=== PATIENT | female | born 1990 | race Caucasian/White ===

== ENCOUNTER 2025-04-17 15:06 | Outpatient (CLI) | payer BC, SELFPAY ==
--- NOTE | ~2025-04-17 | MR_ITS ---
EXAMINATION: MR brain/brain stem wo/w con DATE: 04/17/2025 15:59 INDICATION: Unspecified convulsions TECHNIQUE: Magnetic resonance imaging (MRI) of the brain and brainstem was performed without and with 14 mL Multihance intravenous contrast. Sequences included sagittal and axial T1-weighted SE, axial d iffusion-weighted FS SE, axial 3D SWAN, axial T2-weighted FLAIR Propeller, axial T2-weighted Propelle r, coronal T2-weighted FLAIR, and coronal T1-weighted 3D FSPGR. Postcontrast axial T1-weighted SE was obtained. Apparent diffusion coefficient (ADC) maps were created. COMPARISON: None. FINDINGS: There are no areas of restricted diffusion to suggest acute infarction. No intracranial hemorrhage or abnormal intracranial mass lesion. There are scattered areas of nonspecific increased T2-weighted si gnal intensity in the cerebral white matter, predominantly involving the deep and periventricular whi te matter. There are no intraparenchymal signal abnormalities seen on the other pulse sequences. The ventricles are symmetric and normal in size. Bilateral hippocampi appear normal and symmetric. No meagan dent cruz matter heterotopias or other neuronal migrational abnormalities. There are no abnormal extr a-axial fluid collections. Flow voids are seen in the cerebral arteries on the T2-weighted sequences consistent with their expected patency. Visualized orbits and soft tissues are unremarkable. Mild muc osal thickening the bilateral ethmoid sinuses. Small left mastoid effusion. There are no areas of abn ormal enhancement on the post contrast images. IMPRESSION: 1. Normal brain. No acute intracranial process, abnormal enhancing lesions or other etiology for repo rted convulsions. Reviewed, dictated and finalized at location A. IMPRESSION: 1. Normal brain. No acute intracranial process, abnormal enhancing lesions or o ther etiology for reported convulsions.
--- OUTSIDE RECORDS SUMMARY | 2025-04-17 16:08 | XMS_ITS | Referral Summary ---
Author Organization [facility] [address] Address [address] [place] [address] Phone Care Team Providers Care Line Out Man Name Role Phone Too Wise MD Primary Care Provider + Encounters Date Type Department Care Team Description 04/14/2025 5:32 AM CDT Hospital Encounter [facility] 04/14/2025 5:50 AM CDT - 04/14/2025 10:51 AM CDT Emergency [facility] Emergency Department [address] [place], [place] [id number] Hilda Corona MD Seizure (HCC) (Primary Dx) Discharge Disposition: Discharge to home or self care 03/31/2025 Telephone [facility] [address] [place] [address] Krysten Sanchez MD from Last 3 Months Allergies Active Allergy Reactions Criticality Noted Date Comments Venom-Honey Bee Rash Medium 01/10/2020 Gluten Diarrhea Low 01/10/2020 Shellfish Containing Products Unknown 2024 Medications levETIRAcetam (KEPPRA) 1,000 mg tablet Take 1 tablet (1,000 mg total) by mouth 2 (two) times a day 120 tablet 04/14/2025 Active Active Problems Problem Noted Date Diagnosed Date Elevated BP without diagnosis of hypertension Overview (10/30/2021): Elevated office readings in . Preeclamptic labs WNL 10/13/19. 24' urine - 118 mg protein 10/16/19. Home BP monitoring all WNL. Seasonal allergies 12/02/2018 Resolved Problems Problem Noted Date Diagnosed Date Resolved Date Poor growth affecting management of mother in third trimester 09/17/2021 10/30/2021 Maternal varicella, non-immune 04/11/2021 10/30/2021 Antepartum anemia 10/07/2019 02/17/2020 Maternal varicella, non-immune 06/27/2019 02/17/2020 Immunizations Immunization Administration Dates Next Due Influenza, Quadrivalent, Spl it, Preservative Free, Intramuscular 08/19/2021,10/13/2019 Tdap 07/05/2021,10/13/2019 Social History Tobacco Use Types Packs/Day Years Used Date Smoking Tobacco: Never Smokeless Tobacco: Never Tobacco Cessation:Counseling Given: Not Answered Alcohol Use Standard Drinks/Week Comments Not Currently 0 (1 standard drink = 0.6 oz pur e alcohol) 3-5 TIMES A WEEK AUDIT-C Answer Date Recorded Q1: How often do you have a drink containing alc ohol? Never 09/18/2021 Average Number of Drinks Not on file 021 Frequency of Binge Drinking Not on file 09/09 Personal Safety Answer Date Recorded Have you ever been in or are you currently in a harmful physical or emotional relationship or is someone making you feel afraid or unsafe? Denies 04/14/2025 Comments No Sex and Gender Information Value Date Recorded Sex Assigned at Not on file Legal Sex Female 11:41 AM FINISHER HOT STRIP Gender Identity Not on file Sexual Orientation Not on file Last Filed Vital Signs Vital Sign Reading Time Taken Comments Blood Pressure 110/79 04/14/2025 10:30 AM CDT Pulse 57 04/14/2025 10:30 AM CDT Temperature 36.5 C (97.7 F) 04/14/2025 5:54 AM CDT Respiratory Rate 19 04/14/2025 10:30 AM CDT Oxygen Saturation 99% 04/14/2025 10:30 AM CDT Inhaled Oxygen Concentration - - Weight 61.2 kg (135 lb) 04/14/2025 5:54 AM CDT Height 160 cm (5' 3) 11/17/2024 9:34 AM FINISHER HOT STRIP Body Mass Index 23.91 11/17/2024 9:34 AM FINISHER HOT STRIP Plan of Treatment Not on file Procedures Procedure Name Priority Date/Time Associated Diagnosis Comments POCT HCG, URINE Routine 04/14/2025 8:07 AM CDT URINALYSIS AND REFLEX TO MICROSCOPIC AND CULTURE STAT 04/14/2025 8:[address] HEAD WO CONTRAST ED 04/14/2025 7 :49 AM CDT SEPSIS LACTATE WITH REFLEX STAT 04/14/2025 6:47 AM CDT ECG 12-LEAD Routine 04/14/2025 6:00 AM CDT HCG, BLOOD, QUANTITATIVE STAT 04/14/2025 6:00 AM CDT EGFR STAT 04/14/2025 5:53 AM CDT DIFFERENTIAL AUTO STAT 04/14/2025 5:5 3 AM CDT COMPREHENSIVE METABOLIC PANEL STAT 04/14/2025 5:53 AM CDT CBC WITH AUTO DIFFERENTIAL STAT 04/14/2025 5:53 AM CDT PAP AND HIGH RISK HPV, REFLEX TO GENOTYPING Routine 11/12/2023 9:28 AM FINISHER HOT STRIP Screening for malignant neoplasm of the cervix HEPATITIS C ANTIBODY Routine 03/14/2021 3:29 PM CDT 8 weeks gestation of care, subsequent , second trimester from Last 3 Months or Most Recently Relevant to Health Maintenance Results * POCT hCG, urine (04/14/2025 8:07 AM CDT) HCG, ur, POC Negative Negative Lot Number [id number] QC Backgroud Clear Acceptable QC Control Line Acceptable Urine 04/14/2025 8:07 AM CDT Hilda Corona MD POINT OF CARE TEST ORDERA BLES Final Result * Urinalysis reflex to microscopic and culture Urine (04/14/2025 8:01 AM CDT) Color, ur Straw Yellow Clarity, ur Clear Clear [facility] ([place]) Specific gravity, ur 1.009 1.003 - 1.030 [facility]) pH, urine 6.0 [facility]) Comment: Interpretive Data U rine pH is affected by diet, medications, systemic acid-base disturbances, and renal tubular function. pH may affect urinary stone formation. For example, urine pH below 6.0 may help reduce the tendency for calcium phosphate stones and pH greater than 6.0 may reduce the tendency for uric acid stone formation. Source: [facility] Current Interpretive Data was last revised on 2017 Protein, ur ql Negative Negative [facility] ([place]) Glucose, ur ql Negative Negative [facility] ([place]) Ketones, ur Negative Negative [facility] ([place]) Bilirubin, ur Negative Negative [facility]) Blood, ur Negative Negative [facility]) Urobilinogen, ur <2.0 <2.0 mg/dL [facility]) Nitrite, ur Negative Negative [facility] ([place]) Leukocyte esterase, ur Negative Negative [facility]) UA reflex comment Reflex conditions for microscopic UA and culture not met. [facility]) Urine 04/14/2025 8:01 AM CDT 04/14/2025 8:07 AM CDT Hilda Corona MD LAB MICROBIOLOGY - GENERA L ORDERABLES Final Result [facility] SANIYA ([place]) 1 [facility] Department of Laboratories [place], [place] [id number] * CT Head WO Contrast (04/14/2025 7:49 AM CDT) Anatomical Region Laterality Modality Head and Neck N/A Computed Tomogra phy 04/14/2025 7:58 AM CDT Narrative 04/14/2025 8:01 AM CDT EXAM DESCRIPTION: CT HEAD WO CONTRAST REASON FOR STUDY: Seizure, new-onset, no history of trauma Seizures TECHNIQUE: Axial images acquired through the brain without intravenous contrast. Images stored on PACS. Automated exposure control was used as a dose optimization technique for this examination. COMPARISON: None FINDINGS: BRAIN: No hemorrhage, edema or mass effect. No recent infarct. Normal white matter. EXTRA-AXIAL SPACES: No fluid collections. No masses. CALVARIUM: No fracture. SINUSES/MASTOIDS: No fluid or mucosal thickening. ORBITS: No significant abnormality. OTHER: No other significant abnormality. IMPRESSION: No acute intracranial findings. THIS IS AN ELECTRONICALLY VERIFIED FINAL REPORT 04/14/2025 8:01 AM - Electronically signed by Connor Cook M.D. AM: AM Report ID: [id number] Reading Location: [id number] Procedure Note Connor Cook MD - 04/14/2025 EXAM DESCRIPTION: CT HEAD WO CONTRAST REASON FOR STUDY: Seizure, new-onset, no history of trauma Seizures TECHNIQUE: Axial images acquired through the brain without intravenous contrast. Images stored on PACS. Automated exposure control was used asa dose optimization technique for this examination. COMPARISON: None FINDINGS: BRAIN: No hemorrhage, edema or mass effect. No recent infarct. Normal white matter. EXTRA-AXIAL SPACES: No fluid collections. No masses. CALVARIUM: No fracture. SINUSES/MASTOIDS: No fluid or mucosal thickening. ORBITS: No significant abnormality. OTHER: No other significant abnormality. IMPRESSION: No acute intracranial findings. THIS IS AN ELECTRONICALLY VERIFIED FINAL REPORT 04/14/2025 8:01 AM - Electronically signed by Connor Cook M.D. AM: AM Report ID: [id number] Reading Location: [id number] Hilda Corona MD [facility] PROCEDURES Final R esult * Sepsis Lactate w/ Reflex (04/14/2025 6:47 AM CDT) Sepsis Lactate 1.4 0.7 - 2.0 mmol/L Blood 04/14/2025 6:47 AM CDT 04/14/2025 6:54 AM CDT Iain Duvall MD LAB BLOOD ORDERABLES Final Re sult MAT[facility]W KOTHARI ([place]) 1 [facility] [place] [address] * ECG 12 lead (04/14/2025 6:00 AM CDT) 04/14/2025 6:00 AM CDT Narrative [facility] - 04/14/2025 8:28 AM CDT Vent Rate: 71 bpm RR Interval: 837 msec LA Interval: 133 msec QRS Duration: 106 msec QT Interval: 410 msec QTC Interval: 433 msec P-R-T Metter: 69 - 77 - 36 degrees IMPRESSION: SINUS RHYTHM NORMAL ECG Electronically Signed By: Gilbert Graves MD Iain Duvall MD ECG ORDERABLES Final Result Performing Organization Address [facility] Co de Phone Number [facility] [employer] [facility] * hCG, blood, quantitative (04/14/2025 6:00 AM CDT) hCG, quant <5.0 0.0 - 5.0 IUnits/L Comment: Interpretive Data Male: < 5 IU/L Non- premenopausal Female: <5 IU/L The Kingsley hCG Beta Quant assay procedure was used. Results from different manufacturers or methods may not be comparable. Serial testing should be performed using the same method. Interpretive Data was last revised on 2023 Blood 04/14/2025 6:00 AM CDT 04/14/2025 8:23 AM CDT Hilda Corona MD LAB BLOOD ORDERABLES Edit ed Result - Final [facility]THEW KOTHARI ([place]) 1 [facility] [place] [address] * eGFR (04/14/2025 5:53 AM CDT) eGFR >90 >=60 mL/min/1. 73 m2 Comment: Interpretive Data Reference Interval Normal >/= 90 mL/min/1.73m2 Mildly decreased* 60 - 89 mL/min/1.73m2 Mildly to moderately decreased 45 - 59 mL/min/1.73m2 Moderately to severely decreased 30 - 44 mL/min/1.73m2 Severely decreased 15 - 29 mL/min/1.73m2 Kidney Failure < 15 mL/min/1.73m2 *Relative to young adult level Estimated glomerular filtration rate is determined by the 2020 CKD-EPI equation recommended by the National Kidney Foundation (A Unifying Approach to GFR Estimation: Recommendations of the NKF-ASK Task Force on Reassessing the Inclusion of Race in Diagnosing Kidney Disease, JASN 2020). The CKD-EPI equation should not be used for patients with unstable renal function and has not been validated in children and those over 70. Current interpretive data was last reviewed 2021. Blood 04/14/2025 5:53 AM CDT 04/14/2025 6:11 AM CDT us Iain Duvall MD LAB BLOOD ORDERABLES Final Re sult MATTHEW Ngo[place]) 1 [facility] Department [place] [address] * Differential, auto (04/14/2025 5:53 AM CDT) Neutrophil abs 2.80 1.50 - 6.50 K/cumm Imm gran abs 0.02 0.00 - 0.10 K/cumm [facility] ([place]) Lymphocyte abs 2.68 0.80 - 3.30 K/cumm [facility] ([place]) Monocyte abs 0.48 0.20 - 0.80 K/cumm [facility] ([place]) Eosinophil abs 0.14 0.00 - 0.50 K/cumm [facility] ([place]) Basophil abs 0.04 0.00 - 0.10 K/cumm [facility] ([place]) Neutrophil pct 45.5 % [facility] ([place]) Comment: Interpretive Data Percent cell count reference ranges are not reported, since discordance with absolute values may lead to misinterpretation of CBC data. Current Interpretive Data was last revised on 2018. Imm gran pct 0.3 % [facility] ([place]) Comment: Interpretive Data Percent cell count reference ranges are not reported, since discordance with absolute values may lead to misinterpretation of CBC data. Current Interpretive Data was last revised on 2018. Lymphocyte pct 43.5 % [facility] ([place]) Comment: Interpretive Data Percent cell count reference ranges are not reported, since discordance with absolute values may lead to misinterpretation of CBC data. Current Interpretive Data was last revised on 2018. Monocyte pct 7.8 % [facility] ([place]) Comment: Interpretive Data Percent cell count reference ranges are not reported, since discordance with absolute values may lead to misinterpretation of CBC data. Current Interpretive Data was last revised on 2018. Eosinophil pct 2.3 % [facility] ([place]) Comment: Interpretive Data Percent cell count reference ranges are not reported, since discordance with absolute values may lead to misinterpretation of CBC data. Current Interpretive Data was last revised on 2018. Basophil pct 0.6 % [facility] ([place]) Comment: Interpretive Data Percent cell count reference ranges are not reported, since discordance with absolute values may lead to misinterpretation of CBC data. Current Interpretive Data was last revised on 2018. Blood 04/14/2025 5:53 AM CDT 04/14/2025 6:11 AM CDT us Iain Duvall MD LAB BLOOD ORDERABLES Final Re sult [facility] KOTHARI ([place]) 1 [facility] Department [place] [address] * CBC with auto differential (04/14/2025 5:53 AM CDT) WBC 6.16 3.80 - 9.90 K/cumm Hgb 13.0 11.9 - 15.5 g/dL [facility] ([place]) Hct 39.2 35.6 - 45.5 % [facility]) Plt 284 150 - 400 K/cumm [facility] ([place]) MPV 9.5 9.1 - 12.3 fL [facility]) RBC 4.40 3.90 - 5.20 M/cumm [facility] ([place]) MCV 89.1 81.3 - 96.4 fL [facility]) MCH 29.5 27.1 - 33.3 pg [facility] ([place]) MCHC 33.2 32.3 - 35.7 g/dL [facility]) RDW CV 13.2 11.1 - 14.9 % [facility]) RDW SD 43.6 35.7 - 48.1 fL [facility] NRBC abs 0.00 0.00 - 0.01 K/cumm [facility] Blood 04/14/2025 5:5 3 AM CDT 04/14/2025 6:11 AM CDT us Iain Duvall MD LAB BLOOD ORDERABLES Final Re sult [facility] ([place]) 1 [facility] Department [place] [address] * Comprehensive metabolic panel (04/14/2025 5:53 AM CDT) Sodium 137 135 - 145 mmol/L Potassium, pl 4.4 3.3 - 4.9 mmol/L [facility]) Chloride 100 97 - 110 mmol/L [facility]) CO2 24 22 - 32 mmol/L [facility]) Anion gap 13 2 - 15 mmol/L [facility]) BUN 12 6 - 25 mg/dL [facility] Creatinine 0.76 0.60 - 1.10 mg/dL [facility] ([place]) Glucose 116 70 - 199 mg/dL [facility]) Comment: Interpretive Data Fasting glucose >/= 126 mg/dl is diagnostic for diabetes. Fasting is defined as no caloric intake for at least 8 hours. Fasting glucose between 100 mg/dl to 125 mg/dl is diagnostic of prediabetes. In a patient with classic symptoms of hyperglycemia or hyperglycemic crisis, a random glucose >/= 200 mg/dl is diagnostic for diabetes. In the absence of unequivocal hyperglycemia, results should be confirmed by repeat testing. The classification and Diagnosis of Diabetes Diabetes Care 2021; 46: S19-S40. Current interpretive data was last revised 2022. Calcium 8.9 8.5 - 10.3 mg/dL [facility]) Bilirubin, total 0.4 0.1 - 1.2 mg/dL [facility] ([place]) Protein, pl 7.0 6.5 - 8.5 g/dL [facility] ([place]) Albumin 4.2 3.5 - 5.0 g/dL [facility] ([place]) Alk phos 55 40 - 130 Units/L [facility] ([place]) ALT 16 7 - 45 Units/L [facility]) AST 18 10 - 45 Units/L [facility] ([place]) Blood 04/14/2025 5:53 AM CDT 04/14/2025 6:11 AM CDT us Iain Duvall MD LAB BLOOD ORDERABLES Final Re sult [facility] ([place]) 1 [facility] [place] [address] * Pap and High Risk HPV and Genotyping (Cytology Component) (11/12/2023 9:28 AM FINISHER HOT STRIP) Thin prep (Pap test) 11/12/2023 9:28 AM FINISHER HOT STRIP 11/12/2023 9:28 AM FINISHER HOT STRIP Narrative PATHOLOGY CH - 11/17/2023 8:15 AM FINISHER HOT STRIP [facility] Department of Pathology [address] [place] [id number] Final Report with Addendum Note to Patients: This report may contain a detailed description of human tissue sent by a health care provider to the laboratory for pathologic evaluation. The content of this report is essential for diagnosis and may provide important critical findings. This information may be unfamiliar to patients to review without a medical professional present. It is advised that the patient review this report in the presence of a health care provider who can answer questions and explain the details. Patient Name: ANGELICA DESAI [address]: [address] [place] [address] [place] [address] Gender: F : 1990 (Age: 33) Service: Location: N : [id number] [facility] #: [id number] Patient Type: SPECIMEN Taken: 11/12/2023 Received: 11/12/2023 Accessioned:: 11/13/2023 Reported: 11/17/2023 Physician(s): MD Krysten Youssef MD Diagnosis: SOURCE OF SPECIMEN SCREENING THIN PREP IMAGED PAP w/ HPV: STATEMENT OF ADEQUACY - Satisfactory for evaluation; endocervical/transformation zone component present GENERAL CATEGORIZATION: - Negative for intraepithelial lesion or malignancy [place] Robison(ASCP) Report Electronically Reviewed and Signed Out By MO Robison(ASCP) 11/17/2023 08:15:13Addenda: HPV Test Interpretation (Normal-Negative for High Risk HPV) HPV HR 16- Not detected HPV HR 18-Not detected HPV HR non 16/18- Not detected Interpretive Data Nucleic acid amplification for detection of high-risk Human Papilloma virus (HPV) is performed by the Kingsley Shayne 6800 HPV test. This assay specifically detects HPV- 16 and HPV-18 genotypes. The following HPV genotypes are detected as high-risk HPV: HPV-31, 33, 35, 39, 45, 51, 52, 56, 58, 59, 66, and 68. This assay has been approved by the [place] Food and Drug Administration for detection of HPV in cervical specimens collected by a physician using an endocervical brush/spatula or cervical broom and placed in the ThinPrep Pap Test PreservCyt collection containers. The performance characteristics of this test have been verified by the [facility] Molecular Infectious Disease laboratory. Correlate with reported cytology results, as applicable. Interpretive data last revised 05/01/23 MO Benedict(ASCP)Report Electronically Reviewed and Signed Out By MO Benedict(ASCP) 11/17/2023 08:43:13 Specimen(s) Received: A: SCREENING THIN PREP IMAGED PAP w/ HPV Clinical History: Last Menstrual Period: 11/07/23 Menstrual History: Previous Negative Pap The Pap test is a screening test used to aid in the detection of cervical cancer and its precursors. It should not be the sole means by which malignant and premalignant lesions are diagnosed. Both false negative and false positive results may occur. It also has poor sensitivity for the detection of endometrial lesions and should not be used to evaluate suspected endometrial abnormalities. For these reasons it is most important to obtain Pap tests at regular intervals. The performance characteristics of some immunohistochemical stains, fluorescence in-situ hybridization tests and immunophenotyping by flow cytometry cited in this report (if any) were determined by the Surgical Pathology Department at [facility] as part of an ongoing quality worker program and in compliance with federally mandated regulations drawn from the Clinical Laboratory Improvement Act of 1988 (CLIA '88). Some of these tests rely on the use of analyte specific reagents and are subject to specific labeling requirements by the US Food and Drug Administration. Such diagnostic tests may only be performed in a facility that is certified by the Department of Health and Human Services as a high complexity laboratory under CLIA '88. The FDA has determined that such clearance or approval is not necessary. This test is used for clinical purposes. It should not be regarded as investigational or for research. Nevertheless, federal rules concerning the medical use of analyte specific reagents require that the following disclaimer be attached to the report: This test was developed and its performance characteristics determined by the Surgical Pathology Department [facility]. It has not been cleared or approved by the U. S. Food and Drug Administration. Krysten Sanchez MD LAB CYTOLOGY ORDERABL ES Final Result PATHOLOGY [address] [place] [address] * Hepatitis C antibody (03/14/2021 3:29 PM CDT) Hep C Ab Nonreactive Nonreactive [facility]W GOMEZ Comment: Interpretive Data Nonreactive: Antibodies to HCV not detected. Does NOT exclude the possibility of recent exposure to HCV. Equivocal: Equivocal for HCV antibodies. Supplemental molecular testing will be automatically performed to determine infection status in accordance with current CDC screening recommendations. Reactive: Positive for HCV antibodies. This may represent current or past HCV infection. Supplemental molecular testing will be automatically performed to determine current infection status in accordance with current CDC screening recommendations. Interpretive data was last revised on 2020. Blood specimen (specimen) 03/14/2021 3:29 PM CDT 03/14/2021 7:36 PM CDT Krysten Sanchez MD LAB MICROBIOL OGY - GENERAL ORDERABLES Edited Result - Final MATTHEW GOMEZ [address] Department [place] [address] from Last 3 Months or Most Recently Relevant to Health Maintenance [place] For more information, please contact: [phone] * Full Code (Latest Code Status on File) Date Activated Date Inactivated Comments 09/18/2021 3:32 PM 09/19/2021 9:04 PM * Full Code Date Activated Date Inactivated Comments 09/18/2021 6:10 AM 09/18/2021 3:31 PM Full CPR i n case of cardiopulmonary arrest * Full Code Date Activated Date Inactivated Comments 01/10/2020 5:42 AM 01/12/2020 6:21 PM * Full Code Date Activated Date Inactivated Comments 01/08/2020 6:09 PM 01/10/2020 5:42 AM Full CPR in ca se of cardiopulmonary arrest Care Teams Line Out Man Relationship Specialty Start Date End Date Too Wise MD PCP - General Internal Medicine 12/02/18
--- OUTSIDE RECORDS SUMMARY | 2025-04-17 16:08 | XMS_ITS | Encounter Summary ---
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
--- OUTSIDE RECORDS SUMMARY | 2025-04-17 16:08 | XMS_ITS | Clinical Summary ---
Author Organization [facility] Address [address] [place] [address] Phone Care Team Providers Care Lime Trimmer Name Role Phone Marcymervat Nesha Garcia APRN, PAPER MACHINE TENDER Unavailable [phone]- [phone] Erma Bang APRN, LIBRARY SPECIALIST Unavailable Tia Lott MD Primary Care Provider [phone]- [phone] Allergies Active Allergy Reactions Criticality Noted Date Comments Gluten Meal Diarrhea Low 01/10/2020 Other Anaphylaxis High BEE STING Medications Multiple Vitamin (MULTIVITAMINS PO) Take by mouth. Activ e Probiotic Product (PROBIOTIC BLEND PO) Take by mouth. Activ e predniSONE (DELTASONE) 20 MG TabletIndicatio ns:Celiac disease Take one after exposure to gluten; may take one more in the morning if needed. 2 Tablet Active Additional Information Patient not taking.Reported on 01/26/2024 Active Problems Problem Noted Date Diagnosed Date Gluten intolerance 12/23/2022 Immunizations Immunization Administration Dates Next Due Influenza Vaccine, Quadrivalent, PF 07/10,08/19/2021,08/24/2020,2018,10/21/2018 TDAP Vaccine 07/05/2021,10/13/2019 Tetanus Toxoid, Unspecified Formulation 11/27/2014 Family History Medical History Relation Name Comments Alcohol Abuse Brother High Cholesterol Father Heart Attack Maternal Grandfather Heart Attack Maternal Grandmother Heart Disease Maternal Grandmother Stroke Maternal Grandmother Diabetes Mother pre-diabetic High Cholesterol Mother Hypertension Mother No Known Problems Paternal Grandfather Other-comment Paternal Grandmother AFib Relation Name Status Comments Brother Alive Father Alive Maternal Grandfather Maternal Grandmother Mother Alive Paternal Grandfather Paternal Grandmother Alive Social History Tobacco Use Types Packs/Day Years Used Date Smoking Tobacco: Never Smokeless Tobacco: Never Tobacco Cessation:Counseling Given: Not Answered Alcohol Use Standard Drinks/Week Comments Yes 0 (1 standard drink = 0.6 oz pur e alcohol) Occasionally C Utilities Answer Date Recorded In the past 12 months has th e electric, gas, oil, or water company threatened to shut off services in your home? No 01/26/2024 Social Connection and Isolation Panel Answer Date Recorded In a typical week, how many times do you talk on the phone with family, friends, or neighbors? More than three times a week 01/26/2024 How often do you get togethe r with friends or relatives? Once a week 01/26/2024 How often do you attend [facility] or quaker services? Patient declined 01/26/2024 Do you belong to any clubs o r organizations such as oriental orthodox groups, unions, fraternal or athletic groups, or school groups? No 01/26/2024 How often do you attend meet ings of the clubs or organizations you belong to? Never 01/26/2024 Are you , , di vorced, , never , or living with a partner? 01/26/2024 AUDIT-C Answer Date Recorded Q1: How often do you have a drink containing alc ohol? 2-3 times a week 01/26/2024 Q2: How many drinks containi ng alcohol do you have on a typical day when you are drinking? 1 or 2 01/26/2024 Q3: How often do you have si x or more drinks on one occasion? Never 01/26/2024 Overall Financial Resource Strain (CARDIA) Answe r Date Recorded How hard is it for you to pa y for the very basics like food, housing, medical care, and heating? Not hard at all 01/26/2024 PHQ-2 Answer Date Recorded Total Score - Questions 1-9 0 11/09 [facility] Occupat ional [facility] - Occupational Stress Questionnaire Answer Date Recorded Do you feel stress - tense, restless, nervous, or anxious, or unable to sleep at night because your mind is troubled all the time - these days? Only a little 01/26/2024 Exercise Vital Sign Answer Date Recorde d On average, how many days pe r week do you engage in moderate to strenuous exercise (like a brisk walk)? 4 days 01/26/2024 On average, how many minutes do you engage in exercise at this level? 60 min 01/26/2024 Hunger Vital Sign Answer Date Recorded Within the past 12 months, y ou worried that your food would run out before you got the money to buy more. Never true 01/26/20 24 Within the past 12 months, t he food you bought just didn't last and you didn't have money to get more. Never true 01/26/2024 PRAPARE - Transportation Answer Date Re corded In the past 12 months, has l ack of transportation kept you from medical appointments or from getting medications? No 01/07 In the past 12 months, has l ack of transportation kept you from meetings, work, or from getting things needed for daily living? No 01/26/2024 Housing Stability Vital Sign Answer Sadi e Recorded In the last 12 months, was t here a time when you were not able to pay the mortgage or rent on time? No 01/26/2024 In the last 12 months, how many places have you lived? 1 01/26/2024 In the last 12 months, was t here a time when you did not have a steady place to sleep or slept in a prison (including now)? No 01/26/2024 Education Answer Date Recorded What is the highest level of school you have completed or the highest degree you have received? Bachelor's degree (e.g., BA, AB, BS) 12/23/2022 Sexually Active Control Partners Comments Yes Comments No Sex and Gender Information Value Date Recorded Sex Assigned at Not on file Legal Sex Female 8:33 PM CDT Gender Identity Not on file Sexual Orientation Not on file Last Filed Vital Signs Vital Sign Reading Time Taken Comments Blood Pressure 120/82 01/26/2024 4:17 PM CDT Pulse 77 01/26/2024 4:17 PM CDT Temperature 36.8 C (98.3 F) 01/26/2024 4:17 PM CDT Respiratory Rate 20 01/26/2024 4:17 PM CDT Oxygen Saturation 99% 01/26/2024 4:17 PM CDT Inhaled Oxygen Concentration - - Weight 64.7 kg (142 lb 9.6 oz) 01/26/2024 4:17 P M CDT Height 160 cm (5' 3) 01/26/2024 4:17 PM CDT Body Mass Index 25.26 01/26/2024 4:17 PM CDT Plan of Treatment Health Maintenance Due Date Last Done Comments Hepatitis C Virus (HCV) Screening 1990 Human Papillomavirus (HPV) Immunization (1 - 3-dose series) 01/08/2004 HPV/Cotest 2019 SARS-COV-2 Immunization ( season) 2024 12/21/2021, 05/18/2021, 04/27/2021 Cervical Cancer Screening (CCS) 11/08/2024 Pap Smear 11/08/2024 11/08/2021, 11/10, 04/09/2015 Influenza Immunization (Season Ended) 2025 07/23/2023, 08/19/2021, 08/24/2020, Additional history exists Td Immunization Every 10 Years (Adults With 1 Tdap) 07/05/2031 07/05/2021, 10/13/2019 Respiratory Syncytial Virus (RSV) Immunization (Adult) (1 - 1-dose 75+ series) 01/08/2064 Hepatitis B Immunization Discontinued Meningococcal Immunization (ACWY) Aged Out No longer eligible based on patient's age to complete this topic Pneumococcal Immunization Combined Aged Out No longer eligible based on patient's age to complete this topic Rotavirus Immunization Aged Out No lo nger eligible based on patient's age to complete this topic Procedures Procedure Name Priority Date/Time Associated Diagnosis Comments PATHOLOGY CYTOLOGY ROLLER REPAIRER Routine 04/09/2015 from Last 3 Months or Most Recently Relevant to Health Maintenance Results * PATHOLOGY CYTOLOGY ROLLER REPAIRER (04/09/2015) Specimen of unknown material (specimen) us Jorge More MD PATHOLOGY/CYTOLOGY ORDERABLE S Final Result from Last 3 Months or Most Recently Relevant to Health Maintenance Insurance [facility] Care Teams Lime Trimmer Relationship Specialty Start Date End Date Tia Lott MD [address] [place] [address] PCP - General Family Medicine 01/26/24 Nesha Bates APRN, PAPER MACHINE TENDER [address] [place] [address] Nurse Practitioner Advanced Practice Nurse 04/20/23 Erma Bang APRN, LIBRARY SPECIALIST [address] [place] [address] Nurse Practitioner Advanced Practice Nurse 02/26/23
--- OUTSIDE RECORDS SUMMARY | 2025-04-17 16:08 | XMS_ITS | Clinical Summary ---
Author Organization [facility] [address] Address [address] [place] [address] Phone Care Team Providers Care Returned Goods Repairer Name Role Phone oTo Wise MD Primary Care Provider + Allergies Active Allergy Reactions Criticality Noted Date [...] 10/07/2019 02/17/2020 Maternal varicella, non-immune 06/27/2019 02/17/2020 Encounters Date Type Department Care Team Description 04/14/2025 5:50 AM CDT - 04/14/2025 10:51 AM CDT Emergency [facility] Emergency Department [address] [place] [address] Hilda Corona MD Seizure (HCC) (Primary Dx) Discharge Disposition: Discharge to home or self care 04/14/2025 5:32 AM CDT Hospital Encounter [facility] 03/31/2025 Telephone [facility] [address] [place] [phone] Krysten Sanchez MD from Last 3 Months Immunizations Immunization Administration Dates Next Due Influenza, Quadrivalent, Spl it, Preservative Free, Intramuscular 08/19/2021,10/13/2019 Tdap 07/05/2021,10/13/2019 Surgical History Surgery Date Site/Laterality Comments DILATION AND CURETTAGE OF UTERUS 11/09/2017 - 11/08/2018 Incomplete Medical History Medical History Date Comments Childhood asthma hypertension 2020 Disconti nued Procardia by 6 wks . Family History Medical History Relation Name Comments Hypertension Father Coronary artery disease Maternal Grandmother Diabetes Maternal Grandmother Stroke Maternal Grandmother Diabetes Mother Hypertension Mother Down syndrome Nephew Relation Name Status Comments Father Maternal Grandmother Mother Nephew Social History Tobacco Use Types Packs/Day Years [...] on file Legal Sex Female 11:41 AM DIETITIAN HELPER Gender Identity Not on file Sexual Orientation Not on file Obstetrics History Para Term AB IAB SAB Ectopic Multiple Livin g Live Births 4 2 2 2 2 0 2 2 Date Outcome GA Total Labor Labor/2nd/3rd Weight Sex Type Anes PTL Kiara A1 A5 Name Clin 8 SAB 6w0 d D&C 2019 Term 41w 0d 7h 11m 5h 10m/1h 53m/0h 08m 3.229 kg (7 lb 1.9 oz) F Vag-S pont Epidur al N Livin g 8 9 CHART YESYTERRANCE Krysten Sanchez MD Complications:None Delivery Location:[facility] ([facility]) 2020 Term 39w 5d 1h 21m 0h 49m/0h 19m/0h 13m 2.747 kg (6 lb 0.9 oz) M Vag-S pont Epidur al N Livin g 8 9 CHART BRENDAN HAYWARD Rachel Elizab eth, MD Complications:None Delivery Location:[facility] ([facility]) 4 SAB 5w0 d SAB Comments 2017 - MAB. Failed cytote c. D&C. 2019 - cervidil/pitocin induction for post-dates. HTN on Procardia. 2020 - pitocin induction for IUGR. 2023 - chemical . Last Filed Vital Signs Vital Sign Reading [...] 160 cm (5' 3) 11/17/2024 9:34 AM DIETITIAN HELPER Body Mass Index 23.91 11/17/2024 9:34 AM DIETITIAN HELPER Plan of Treatment Health Maintenance Due Date Last Done Comments Depression Screening 1989 Varicella Vaccines (1 of 2 - 13+ 2-dose series) 2002 Hepatitis B Screening 2007 Cervical Cancer Screening 11/12/20242023, 11/12/2023, 03/14/2021, Additional history exists Influenza Vaccine (Season Ended) 2025 07/23/2023, 08/19/2021, 08/24/2020, Additional history exists Regular Well Visit/Exam 18-64 11/17/2025 11/17/2024, 11/12/2023, 11/05/2022, Additional history exists DTaP/Tdap/Td Vaccine (3 - Td or Tdap) 07/05/2031 07/05/2021, 10/13/2019 Hepatitis C Screening Completed 03/14/2021, 019 HPV Vaccines Aged Out No longer eligi ble based on patient's age to complete this topic Pneumococcal vaccine <65 Aged Out No longer eligible based on [...] REFLEX TO GENOTYPING Routine 11/12/2023 9:28 AM DIETITIAN HELPER Screening for malignant neoplasm of the cervix [...] tendency for uric acid stone formation. Source: [facility] [employer] Current Interpretive Data was last revised on [...] 8:01 AM CDT 04/14/2025 8:07 AM CDT us Hilda Corona MD LAB MICROBIOLOGY - GENERA L ORDERABLES Final Result [facility] [place]) [address] [facility] Department [place] [address] * CT Head WO Contrast (04/14/2025 7:49 [...] Connor Cook M.D. AM: AM Report ID: [id number] Reading Location: [id number] Procedure Note Connor Cook MD - 04/14/2025 [...] Connor Cook M.D. AM: AM Report ID: [id number] Reading Location: [place] [address] Hilda Corona MD IMG CT PROCEDURES Final R esult * Sepsis Lactate w/ Reflex (04/14/2025 6:47 AM CDT) Sepsis Lactate 1.4 0.7 - 2.0 mmol/L Blood 04/14/2025 6:47 AM CDT 04/14/2025 6:54 AM CDT Iain Duvall MD LAB BLOOD ORDERABLES Final Re sult Performing Organization Address City/[facility] Co de Phone Number [facility] [address] Department [place] [address] * ECG 12 lead (04/14/2025 6:00 AM CDT) 04/14/2025 6:00 AM CDT Narrative [facility] - 04/14/2025 8:28 AM CDT Vent Rate: 71 bpm RR Interval: 837 msec TN Interval: 133 msec QRS Duration: 106 msec QT Interval: 410 msec QTC Interval: 433 msec P-R-T [place]: 69 - 77 - 36 degrees IMPRESSION: SINUS RHYTHM NORMAL ECG Electronically Signed By: Gilbert Graves MD Iain Duvall MD ECG ORDERABLES Final Result Performing Organization Address City/[facility] Co de Phone Number [facility] [employer] [facility] * hCG, blood, quantitative (04/14/2025 6:00 [...] 6:00 AM CDT 04/14/2025 8:23 AM CDT us Hilda Corona MD LAB BLOOD ORDERABLES Edit ed Result - Final Performing Organization Address City/[facility]/ZIP Co de Phone Number [facility] ([place]) [address] [facility] [place] [address] * eGFR (04/14/2025 5:53 AM CDT) eGFR [...] BLOOD ORDERABLES Final Re sult [facility] ([place]) [address] [facility] [place] [address] * Differential, auto (04/14/2025 5:53 AM CDT) Neutrophil abs 2.80 1.50 - 6.50 K/cumm Imm gran abs 0.02 0.00 - 0.10 K/cumm [facility] ([place]) Lymphocyte abs 2.68 0.80 - 3.30 K/cumm [facility] ([place]) Monocyte abs 0.48 0.20 - 0.80 K/cumm [facility] ([place]) Eosinophil abs 0.14 0.00 - 0.50 K/cumm [facility] ([place]) Basophil abs 0.04 0.00 - 0.10 K/cumm [facility] ([place]) Neutrophil pct 45.5 % [facility] ([place]) Comment: Interpretive Data Percent cell count reference ranges are not reported, since discordance with absolute values may lead to misinterpretation of CBC data. Current Interpretive Data was last revised on 2018. Imm gran pct 0.3 % [facility] ([place]) Comment: Interpretive Data Percent cell count reference ranges are not reported, since discordance with absolute values may lead to misinterpretation of CBC data. Current Interpretive Data was last revised on 2018. Lymphocyte pct 43.5 % [facility] ([place]) Comment: Interpretive Data Percent cell count reference ranges are not reported, since discordance with absolute values may lead to misinterpretation of CBC data. Current Interpretive Data was last revised on 2018. Monocyte pct 7.8 % [facility] ([place]) Comment: Interpretive Data Percent cell count reference ranges are not reported, since discordance with absolute values may lead to misinterpretation of CBC data. Current Interpretive Data was last revised on 2018. Eosinophil pct 2.3 % [facility] ([facility]) Comment: Interpretive Data Percent cell count reference ranges are not reported, since discordance with absolute values may lead to misinterpretation of CBC data. Current Interpretive Data was last revised on 2018. Basophil pct 0.6 % [facility] ([place]) Comment: Interpretive Data Percent cell count reference ranges are not reported, since discordance with absolute values may lead to misinterpretation of CBC data. Current Interpretive Data was last revised on 2018. Blood 04/14/2025 5:53 AM CDT 04/14/2025 6:11 AM CDT us Iain Duvall MD LAB BLOOD ORDERABLES Final Re sult Performing Organization Address City/[facility]/ZIP Co de Phone Number [facility] ([place]) [address] [facility] [place] [address] * CBC with auto differential (04/14/2025 5:53 [...] RDW SD 43.6 35.7 - 48.1 fL [facility] ([place]) NRBC abs 0.00 0.00 - 0.01 K/cumm [facility] ([place]) Blood 04/14/2025 5:53 AM CDT 04/14/2025 6:11 AM CDT us Iain Duvall MD LAB BLOOD ORDERABLES Final Re sult [facility] ([place]) [address] [facility] [place] [address] * Comprehensive metabolic panel (04/14/2025 5:53 AM CDT) Sodium 137 135 - 145 mmol/L Potassium, pl 4.4 3.3 - 4.9 mmol/L [facility] ([place]) Chloride 100 97 - 110 mmol/L [facility] ([place]) CO2 24 22 - 32 mmol/L [facility] ([place]) Anion gap 13 2 - 15 mmol/L [facility] ([place]) BUN 12 6 - 25 mg/dL [facility] ([place]) Creatinine 0.76 0.60 - 1.10 [...] classification and Diagnosis of Diabetes Diabetes Care 202; 46: S19-S40. Current interpretive data was last [...] MD LAB BLOOD ORDERABLES Final Re sult [facility] ([place]) [address] [facility] Department [place] [address] * Pap and High Risk HPV and Genotyping (Cytology Component) (11/12/2023 9:28 AM DIETITIAN HELPER) Thin prep (Pap test) 11/12/2023 9:28 AM DIETITIAN HELPER 11/12/2023 9:28 AM DIETITIAN HELPER Narrative PATHOLOGY CH - 11/17/2023 8:15 AM DIETITIAN HELPER [facility] Department of Pathology [address] [place], [place] [id number] Final Report with Addendum Note to Patients: [...] the details. Patient Name: ANGELICA DESAI Address: [address] [place] [id number] Gender: F : 1990 (Age: 33) Service: Location: [facility] #: [id number] Patient Type: SPECIMEN Taken: 11/12/2023 Received: 11/12/2023 [...] this test have been verified by the [facility] Molecular Infectious Disease laboratory. Correlate with reported [...] determined by the Surgical Pathology Department at [facility] as part of an ongoing quality control lab tech program and in compliance with federally mandated [...] characteristics determined by the Surgical Pathology Department [facility]. It has not been cleared or approved by the U. S. Food and Drug Administration. Krysten Sanchez MD LAB CYTOLOGY ORDERABL ES Final Result [facility] [address] [place] [address] * Hepatitis C antibody (03/14/2021 3:29 PM [...] - GENERAL ORDERABLES Edited Result - Final Performing Organization Address [facility]/ZIP Co de Phone Number [facility] [address] [address] Department [place] [address] from Last 3 Months or Most Recently Relevant to [place] [address] [address] [place] Advance Directives For more information, please contact: [phone] * Full Code (Latest Code Status on [...] ca se of cardiopulmonary arrest Care Teams Returned Goods Repairer Relationship Specialty Start Date End Date Too Wise MD PCP - General Internal Medicine 12/02/18
--- OUTSIDE RECORDS SUMMARY | 2025-04-17 16:08 | XMS_ITS | Clinical Summary ---
Author Organization [employer] [address] [facility] [address] [place] [address] Phone Care Team Providers Care Dry Box Operator Name Role Phone Too Wise MD Primary Care Provider [phone]- [phone] Social History Tobacco Use Types Packs/Day Years Used Date Smoking Tobacco: Never Assessed Comments Unknown Sex and Gender Information Value Date Recorded Sex Assigned at Not on file Legal Sex Female 8:47 AM CDT Gender Identity Not on file Sexual Orientation Not on file Plan of Treatment Health Maintenance Due Date Last Done Comments DTAP/TDAP/TD VACCINES (1 - Tdap) 01/08/2008 HEPATITIS B VACCINES (1 of 3 - 19+ 3-dose series) 01/08/2008 HPV/Cotest (21-29) 2010 CERVICAL CANCER SCREENING 2019 HPV/Cotest (30-65) 2019 PAP SMEAR 2019 INFLUENZA VACCINE (#1) 2024 HPV VACCINES Aged Out No longer eligi ble based on patient's age to complete this topic Insurance [facility] [id number] Care Teams Dry Box Operator Relationship Specialty Start Date End Date Too Wise MD [address] [place] [address] PCP - General Internal Medicine 05/31/18
== END 2025-04-17 15:07 | disposition home or self-care (01) ==
PROVIDERS: PCP Internal Medicine; Visit Provider Internal Medicine
DX: R56.9 Unspecified convulsions (principal)
CPT/HCPCS: 70553; A9579